=== PATIENT | female | born 1990 | race Caucasian/White ===

== ENCOUNTER → 2016-08-21 | Outpatient (CLI) | payer MEDICAID ==
[~2016-08-21] MED LIST: CIPR500T89 PO; IBUP200C PO; K-TA1TAB PO; LIDOCAINE 1% MDV 20ML VIAL As Ordered ONE; LIDOCAINE 2% MDV 20 ML VIAL As Ordered ONE; LIDOCAINE W/EPINEPHRINE 1% 20ML VIAL As Ordered ONE; MAGNESIUM PO; ORSYTAB PO; SODIUM BICARBONATE 8.4% INJ 50MEQ 50 ML VIAL As Ordered ONE; TRI IODINE PO; TYLE325T5 PO
--- NOTE | 2016-08-21 17:18 | REPKIM ---
CLINICAL HISTORY: Patient has a right chest [id number]. The referring service has requested to remove the chest [id number] because it is no longer needed. PROCEDURE PERFORMED: Chest Degtyy-F-Xytb Removal INTERVENTIONALIST: Angelito Suresh MD MEDICATIONS: Local Lidocaine EBL: less than 5 mL CONSENT: The risks, benefits and alternatives to the procedure were explained to the patient and informed written consent was obtained. PROCEDURE/FINDINGS: The patient was brought to the interventional radiology suite and was positioned supine on the table. Time out procedure was performed. Fluoroscopy of the chest showed the catheter is intact with its tip in a satisfactory course and position. The right upper chest was prepped and draped in the usual sterile fashion. Local anesthesia was administered to the overlying skin and surrounding deep tissue around the existing port. Then a skin incision was made. The port was bluntly dissected free from the surrounding soft tissues. Then the port and its associated catheter were removed in their entirety. The deep tissue was closed with interrupted 2-0 Vicryl suture. The skin incision closed with running subcutaneous 4-0 Vicryl suture and steristrips. The patient tolerated the procedure well with no immediate complications. This procedure was performed using fluoroscopy. Dr. Suresh was present. IMPRESSION: Successful chest mzshvb-y-cnvi removal as discussed above. cc: Lindy Gutierrez MD [facility]
== END | disposition home or self-care (01) ==
LOC: M IRPRO 12:41
PROVIDERS: ATTEND Internal Medicine Medical Oncology
DX: Z45.2 Encounter for adjustment and management of vascular access device (principal)

== ENCOUNTER → 2017-02-24 | Outpatient (CLI) | payer OTHER ==
[~2017-02-24] MED LIST changes: +CIPR-249 PO; -CIPR500T89 PO; +GASTROGRAFIN SOLUTION 30ML (Q9963) As Ordered ONE; -IBUP200C PO; +IBUP200C10 PO; +ISOVUE-370 76% 100ML VIAL (Q9967) As Ordered ONE; -LIDOCAINE 1% MDV 20ML VIAL As Ordered ONE; -LIDOCAINE 2% MDV 20 ML VIAL As Ordered ONE; -LIDOCAINE W/EPINEPHRINE 1% 20ML VIAL As Ordered ONE; -SODIUM BICARBONATE 8.4% INJ 50MEQ 50 ML VIAL As Ordered ONE
--- NOTE | 2017-02-24 12:00 | REP ---
CT of the abdomen and pelvis without and with IV contrast, multiphase scanning: Comparison studies are 09/07/2015 and 05/08 2015 in this patient with an FAP tumor. The patient's known large mass in the anterior pelvic wall today measures: 11.8 cm transversely by 3.4 cm AP by 9.3 cm craniocaudad. 15.8 cm transversely by 9.7 cm AP by 13.8 cm craniocaudad on 09/07/2015. 15.2 cm transversely by 10.5 cm AP by 12.6 cm craniocaudad on 05/08/2015. Additionally there is a soft tissue intraperitoneal mass is to the right of midline slightly above the level of the anterior abdominal wall mass today measuring 3.1 cm transversely by 1.5 cm AP. 4.5 cm transversely by 2.9 cm AP on 09/07/2015. 3.4 cm transversely by 2.4 cm AP on05/08/2015. The the patient has a colectomy. The visualized lung lopez are unremarkable. There is an enhancing mass posteriorly in the right lobe of the liver on the arterial phase, also present previously. On the study today this measures 2.9 cm. 3.6 cm on 05/08/2015 3.2 cm on 11/18/2014. The gallbladder, pancreas and spleen are unremarkable and unchanged. The adrenals, kidneys and abdominal aorta are unremarkable and unchanged. There is no retroperitoneal mesenteric adenopathy. The perirectal bowel loops are chronically dilated, unchanged. Remainder of the bowel loops are not dilated. There is no ascites. The bladder is unremarkable. No pelvic adenopathy or ascites. Impression: The patient's anterior abdominal wall mass has decreased in size. The patients intraperitoneal mass has decreased in size. The enhancing lesion in the right lobe of the liver has decreased in size. No ascites or adenopathy. Signed by Sterling Dumont MD 02/24/2017 11:51 A
== END ==
LOC: M RAD 09:24
PROVIDERS: ATTEND Surgery
DX: D12.6 Benign neoplasm of colon, unspecified (principal); D48.1 Neoplasm of uncertain behavior of connective and other soft tissue
CPT/HCPCS: 74178; Q9963; Q9967

== ENCOUNTER 2017-10-12 21:28 | Emergency (ER) | payer OTHER ==
[2017-10-12] MEDS: NS 1,000 ML IV ×2 (22:54→23:00)
[2017-10-12 23:00] LABS: BASO % 0.4 % (0.0-1.0); EOS # 0.1 10^3/uL (0.0-0.50); EOS % 1.4 % (0.0-3.0); HEMATOCRIT 42.4 % (36.0-47.0); HEMOGLOBIN 13.5 g/dl (12.0-15.5); IMMATURE GRANULOCYTE % 0.4 % (0-3.0); LYMPH # 1.4 10^3/uL (1.5-6.5); LYMPH % 17.3 % (24.0-44.0); MEAN CORPUSCULAR HEMOGLOBIN 27.3 pg (27.0-33.0); MEAN CORPUSCULAR HGB CONC 31.8 g/dl (32.0-36.5); MEAN CORPUSCULAR VOLUME 85.8 fl (80.0-96.0); MONO # 0.5 10^3/uL (0.0-0.8); MONO % 6.4 % (0.0-5.0); NEUTROPHILS % 74.1 % (36.0-66.0); PLATELET COUNT, AUTOMATED 355 10^3/uL (150-450); RED BLOOD COUNT 4.94 10^6/uL (4.00-5.40); RED CELL DISTRIBUTION WIDTH 12.7 % (11.5-14.5); WHITE BLOOD COUNT 8.1 10^3/uL (4.0-10.0)
[2017-10-12 23:09] LABS: ALBUMIN 3.7 GM/DL (3.2-5.2); ALBUMIN/GLOBULIN RATIO 0.86 (1.00-1.93); ALKALINE PHOSPHATASE 75 U/L (45-117); ALT/SGPT 21 U/L (12-78); ANION GAP 5 MEQ/L (8-16); AST/SGOT 17 U/L (7-37); BILIRUBIN,DIRECT < 0.1 MG/DL (0.0-0.2); BILIRUBIN,TOTAL 0.2 MG/DL (0.2-1.0); BLOOD UREA NITROGEN 11 MG/DL (7-18); CARBON DIOXIDE LEVEL 27 MEQ/L (21-32); CHLORIDE LEVEL 110 MEQ/L (98-107); CREATININE FOR GFR 0.99 MG/DL (0.55-1.30); GLOMERULAR FILTRATION RATE > 60.0 (>60); GLUCOSE, FASTING 112 MG/DL (70-100); LIPASE 1048 U/L (73-393); MAGNESIUM LEVEL 1.9 MG/DL (1.8-2.4); POTASSIUM SERUM 3.7 MEQ/L (3.5-5.1); SODIUM LEVEL 142 MEQ/L (136-145)
[2017-10-12 23:49] LABS: APPEARANCE, URINE HAZY (CLEAR); BACTERIA, URINE AUTO 3+ (NEGATIVE); BILIRUBIN, URINE AUTO NEGATIVE (NEGATIVE); BLOOD, URINE BLOOD NEGATIVE (NEGATIVE); COLOR, URINE YELLOW (YELLOW); GLUCOSE, URINE (UA) AUTO NEGATIVE (NEGATIVE); KETONE, URINE AUTO NEGATIVE (NEGATIVE); LEUKOCYTE ESTERASE, URINE AUTO 3+ (NEGATIVE); MUCUS, URINE SMALL (NEGATIVE); NITRITE, URINE AUTO POSITIVE (NEGATIVE); PROTEIN, URINE AUTO NEGATIVE (NEGATIVE); RBC, URINE AUTO 10 /HPF (0-3); SPECIFIC GRAVITY URINE AUTO 1.014 (1.002-1.035); SQUAMOUS EPITHELIAL CELL UR AU 2 /HPF (0-6); TRANSITIONAL EPITHELIAL AUTO <1 /HPF; UROBILINOGEN, URINE AUTO 0.2 mg/dL (0.0-2.0); WBC, URINE AUTO 51 /HPF (0-3); YEAST LIKE CELL URINE AUTO SMALL
[2017-10-13 00:05] LABS: AMYLASE 159 U/L (25-115)
[2017-10-13] MEDS: NITROFURANTOIN (MACROBID) 100 MG CAP PO (01:00)
== END 2017-10-13 01:18 | disposition home or self-care (01) ==
LOC: M ED 10-13 01:18
DX: N39.0 Urinary tract infection, site not specified (principal); E86.0 Dehydration; R74.8 Abnormal levels of other serum enzymes; E03.9 Hypothyroidism, unspecified; Z79.899 Other long term (current) drug therapy; Z88.0 Allergy status to penicillin; Z88.1 Allergy status to other antibiotic agents; Z88.5 Allergy status to narcotic agent
CPT/HCPCS: 82150

== ENCOUNTER → 2017-10-16 | Outpatient (REF) | payer OTHER | LOC: M LAB REF 11:34 | DX: R19.7 Diarrhea, unspecified (principal) ==

== ENCOUNTER → 2018-02-13 | Outpatient (REF) | payer OTHER ==
[2018-02-13 14:16] LABS: FERRITIN 6 NG/ML (8-252); FREE T4 0.96 NG/DL (0.76-1.46); IRON (FE) 48 UG/DL (50-170); PERCENT SATURATION 10.4 % (13.2-45.0); TOTAL IRON BINDING CAPACITY 462 UG/DL (250-450)
== END ==
LOC: M LAB REF 13:37
DX: D48.1 Neoplasm of uncertain behavior of connective and other soft tissue (principal); D70.1 Agranulocytosis secondary to cancer chemotherapy; T45.1X5A Adverse effect of antineoplastic and immunosuppressive drugs, initial encounter

== ENCOUNTER → 2019-08-17 | Outpatient (CLI) | payer OTHER ==
[~2019-08-17] MED LIST changes: +B12-1CHW PO; +CALC600T57 PO; -IBUP200C10 PO; +IBUP200C25 PO; +IRON1TAB2 PO; +IRON65TA PO; +LACRI-LUBE OU; +LEVO25TA5 PO; +MACR100C43 PO; +MULTCAP PO; +PROT1TAB2 PO; +RALO1TAB PO; +SUCR1SS PO; +SULI150T PO; +TURM500C PO; +VITA100054 PO; +VITA200016 PO
--- NOTE | 2019-08-18 06:10 | REP ---
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 Technique: Axial contrast enhanced images from the lung bases to the pubic symphysis using oral (per protocol) and 100 ml Isovue 370 intravenous contrast material with delayed images of the abdomen as well as coronal and sagittal re-formations. Comparison: 10/27/2017. Findings: Lung bases are clear. Visualized heart and pericardium normal. The liver again demonstrates a stable hypervascular area along the posterior periphery of the right hepatic lobe unchanged from prior examination and likely representing hemangioma as previously suggested. The spleen, pancreas, gallbladder, right adrenal gland and kidneys are normal. Stable 9 mm left adrenal adenoma again noted. There is evidence for large bowel resection with small bowel - distal sigmoid anastomosis. Small bowel mesenteric lymph nodes are normal in appearance and decrease in size from prior examination. The actual small bowel mesentery mass noted on prior examination is slightly decreased in size and measures approximately 1.5 cm maximal width previously measuring 1.9 cm at the same level. The lobulated desmoid tumor involving the rectus muscles is considerably decreased in size from prior examination and difficult to currently quantify. However, the left rectus muscle measures roughly 2.1 cm maximal thickness and previously measured 3.2 cm maximal thickness at the same level. The pelvis demonstrates normal bladder and age-appropriate uterus/adnexa with stable 3 cm left ovarian cyst. No pelvic fluid. No intra-abdominal mass lesion. No adenopathy. No ascites. No free air. Abdominal aorta and vasculature appears normal. Musculoskeletal structures are intact without focal abnormality. Impression: 1. Desmoid tumor involving the anterior rectus muscles is decreased in size from prior examination. 2. Mass lesion in the small bowel mesentery has decreased in size from prior examination and the small bowel mesenteric lymph nodes are now relatively normal in appearance and size. 3. Remainder of the findings as described above including hypervascular lesion in the right posterior hepatic lobe, left adrenal lesion, left ovarian cyst appear essentially unchanged. 4. No new mass lesion or metastatic disease noted. Electronically Signed by Markus Do MD 08/18/2019 06:01 A
== END ==
LOC: M RAD 16:21
PROVIDERS: ATTEND Internal Medicine Hematology & Oncology
DX: D48.3 Neoplasm of uncertain behavior of retroperitoneum (principal); Z98.0 Intestinal bypass and anastomosis status; Z90.49 Acquired absence of other specified parts of digestive tract; D35.02 Benign neoplasm of left adrenal gland
CPT/HCPCS: 74177; Q9963; Q9967

== ENCOUNTER → 2019-10-28 | Outpatient (REF) | payer OTHER ==
[~2019-10-28] MED LIST changes: -GASTROGRAFIN SOLUTION 30ML (Q9963) As Ordered ONE; -ISOVUE-370 76% 100ML VIAL (Q9967) As Ordered ONE
[2019-10-28 11:37] LABS: ALBUMIN 3.5 GM/DL (3.2-5.2); ALT/SGPT 31 U/L (12-78); BILIRUBIN,TOTAL 0.4 MG/DL (0.2-1.0); BLOOD UREA NITROGEN 8 MG/DL (7-18); CARBON DIOXIDE LEVEL 30 MEQ/L (21-32); CHLORIDE LEVEL 106 MEQ/L (98-107); CREATININE FOR GFR 0.86 MG/DL (0.55-1.30); FREE T3 2.7 PG/ML (2.2-4.0); FREE T4 1.13 NG/DL (0.76-1.46); GLOMERULAR FILTRATION RATE > 60.0 (>60); GLUCOSE, FASTING 78 MG/DL (70-100); POTASSIUM SERUM 4.3 MEQ/L (3.5-5.1); SODIUM LEVEL 142 MEQ/L (136-145); THYROXINE (T4) 12.5 UG/DL (4.5-12.0); TOTAL PROTEIN 6.8 GM/DL (6.4-8.2)
[2019-10-28 12:04] LABS: TOTAL 25(OH) VITAMIN D 26.3 NG/ML (30.0-100.0)
[2019-10-29 08:07] LABS: THYROID PEROXIDASE ANTIBODY 35.1 U/ML (<60.0)
== END ==
LOC: M LABDRAW1 10:41
PROVIDERS: ATTEND Nurse Practitioner Adult Health
DX: E03.2 Hypothyroidism due to medicaments and other exogenous substances (principal); L65.8 Other specified nonscarring hair loss; Z79.899 Other long term (current) drug therapy

== ENCOUNTER → 2019-12-21 | Outpatient (CLI) | payer OTHER | LOC: M LABSMTC 09:50 | PROVIDERS: ATTEND Nurse Practitioner Adult Health | DX: Z03.818 Encounter for observation for suspected exposure to other biological agents ruled out (principal); Z11.59 Encounter for screening for other viral diseases | CPT/HCPCS: C9803; U0003 ==

== ENCOUNTER → 2020-03-25 | Outpatient (REF) | payer OTHER ==
[~2020-03-25] MED LIST changes: +KELP150T2 PO
[2020-03-25 11:35] LABS: BASO % 0.4 % (0.0-1.0); EOS # 0.4 10^3/uL (0.0-0.5); EOS % 5.4 % (0.0-3.0); HEMATOCRIT 41.9 % (36.0-47.0); HEMOGLOBIN 13.4 g/dl (12.0-15.5); LYMPH % 40.3 % (24.0-44.0); MEAN CORPUSCULAR HEMOGLOBIN 30.2 pg (27.0-33.0); MEAN CORPUSCULAR VOLUME 94.4 fl (80.0-96.0); MONO # 0.5 10^3/uL (0.0-0.8); MONO % 6.1 % (0.0-5.0); NEUTROPHILS # 3.6 10^3/uL (1.5-8.5); NEUTROPHILS % 47.4 % (36.0-66.0); PLATELET COUNT, AUTOMATED 327 10^3/uL (150-450); RED BLOOD COUNT 4.44 10^6/uL (4.00-5.40); WHITE BLOOD COUNT 7.5 10^3/uL (4.0-10.0)
[2020-03-25 12:01] LABS: ALBUMIN 3.4 GM/DL (3.2-5.2); ALT/SGPT 28 U/L (12-78); BILIRUBIN,TOTAL 0.4 MG/DL (0.2-1.0); BLOOD UREA NITROGEN 12 MG/DL (7-18); CALCIUM LEVEL 9.3 MG/DL (8.5-10.1); CARBON DIOXIDE LEVEL 34 MEQ/L (21-32); CHLORIDE LEVEL 107 MEQ/L (98-107); CREATININE FOR GFR 0.81 MG/DL (0.55-1.30); FERRITIN 61 NG/ML (8-252); FREE T4 0.97 NG/DL (0.76-1.46); GLOMERULAR FILTRATION RATE > 60.0 (>60); GLUCOSE, FASTING 67 MG/DL (70-100); IRON (FE) 82 UG/DL (50-170); PERCENT SATURATION 22.8 % (13.2-45.0); POTASSIUM SERUM 4.6 MEQ/L (3.5-5.1); SODIUM LEVEL 142 MEQ/L (136-145); TOTAL IRON BINDING CAPACITY 360 UG/DL (250-450); TOTAL PROTEIN 6.6 GM/DL (6.4-8.2)
== END ==
LOC: M LAB REF 10:05
PROVIDERS: ATTEND Internal Medicine Hematology & Oncology
DX: Z79.899 Other long term (current) drug therapy (principal)

== ENCOUNTER → 2020-08-29 | Outpatient (CLI) | payer OTHER ==
[~2020-08-29] MED LIST changes: +GASTROGRAFIN SOLUTION 30ML (Q9963) As Ordered ONE; +ISOVUE-370 76% 100ML VIAL As Ordered ONE
--- NOTE | 2020-08-30 06:24 | REP ---
INDICATION: BEGIN NEOPLASM OF COLON DESMOID TUMOR. COMPARISON: 08/17/2019 TECHNIQUE: Axial contrast-enhanced images from the lung bases to the pubic symphysis using oral and 100 cc Isovue 370 intravenous contrast material. Delayed images of the abdomen along with coronal and sagittal reformations obtained. This CT examination was performed using the following dose reduction techniques: Automated exposure control, adjustment of mA and/or kv according to the patient's size, and the use of iterative reconstruction technique. FINDINGS: Liver, spleen, pancreas, gallbladder, bilateral adrenal glands and kidneys are normal/stable. Small left adrenal adenoma is unchanged. Subtle hypervascular area within the posterior aspect of the right hepatic lobe is vaguely apparent and essentially unchanged. Patient appears to be status post total colectomy. The enteric system is without obstruction or acute inflammatory process. No obvious mass lesion identified. A somewhat triangular area of soft tissue in the right anterior paramidline pelvis (series 201; images 82-88) remains stable. Thickened appearance along the inferior aspect of the left rectus muscle remains unchanged. Pelvis demonstrates normal bladder and age-appropriate uterus/adnexa. No ascites. No free air. No intraperitoneal or retroperitoneal adenopathy. No mesenteric adenopathy. Abdominal aorta and vasculature appear normal. Skeletal structures are intact. IMPRESSION: 1. No acute abdominopelvic pathology appreciated. 2. Stable appearance to the thickened left rectus muscle and small focus of soft tissue within the anterior right hemipelvis. <Electronically signed by Markus Do > 08/30/20 0619
== END ==
LOC: M RAD 11:25
PROVIDERS: ATTEND Internal Medicine Hematology & Oncology
DX: C18.9 Malignant neoplasm of colon, unspecified (principal)
CPT/HCPCS: 74177; Q9963; Q9967

== ENCOUNTER → 2021-08-23 | Outpatient (CLI) | payer OTHER ==
[~2021-08-23] MED LIST changes: +MULT-90 PO; +VITA1CAP25 PO
== END ==
LOC: M RAD 12:02
PROVIDERS: ATTEND Internal Medicine Medical Oncology
DX: R91.1 Solitary pulmonary nodule (principal); D48.1 Neoplasm of uncertain behavior of connective and other soft tissue; E27.8 Other specified disorders of adrenal gland
CPT/HCPCS: 71260; 74177; Q9963; Q9967

== ENCOUNTER → 2021-11-27 | Outpatient (CLI) | payer OTHER ==
[~2021-11-27] MED LIST changes: -GASTROGRAFIN SOLUTION 30ML (Q9963) As Ordered ONE
== END ==
LOC: M RAD 10:51
PROVIDERS: ATTEND Specialist
DX: R91.1 Solitary pulmonary nodule (principal); R93.2 Abnormal findings on diagnostic imaging of liver and biliary tract
CPT/HCPCS: 71260; Q9967

== ENCOUNTER → 2021-12-11 | Outpatient (CLI) | payer OTHER ==
[~2021-12-11] MED LIST changes: -ISOVUE-370 76% 100ML VIAL As Ordered ONE
== END ==
LOC: M WHC 12:56
PROVIDERS: ATTEND Internal Medicine Hematology & Oncology
DX: N64.89 Other specified disorders of breast (principal)
CPT/HCPCS: 76641; 77066; G0279

== ENCOUNTER → 2022-09-20 | Outpatient (CLI) | payer OTHER ==
[~2022-09-20] MED LIST changes: +GASTROGRAFIN SOLUTION 30ML As Ordered ONE; +ISOVUE-370 76% 100ML VIAL As Ordered ONE
== END ==
LOC: M RAD 13:46
PROVIDERS: ATTEND Nurse Practitioner
DX: D48.1 Neoplasm of uncertain behavior of connective and other soft tissue (principal); Z98.1 Arthrodesis status; E04.1 Nontoxic single thyroid nodule

== ENCOUNTER → 2022-10-01 | Outpatient (REF) | payer OTHER ==
[~2022-10-01] MED LIST changes: -GASTROGRAFIN SOLUTION 30ML As Ordered ONE; -ISOVUE-370 76% 100ML VIAL As Ordered ONE
== END ==
LOC: M LAB REF 15:57
PROVIDERS: ATTEND Otolaryngology
DX: H65.22 Chronic serous otitis media, left ear (principal)

== ENCOUNTER → 2023-10-21 | Outpatient (CLI) | payer OTHER ==
[~2023-10-21] MED LIST changes: +GASTROGRAFIN SOLUTION 30ML As Ordered ONE; +ISOVUE-370 76% 100ML VIAL As Ordered ONE
== END ==
LOC: M RAD 13:50
PROVIDERS: ATTEND Nurse Practitioner
DX: D48.113 Desmoid tumor of abdominal wall (principal); Z98.0 Intestinal bypass and anastomosis status; N83.201 Unspecified ovarian cyst, right side; R93.89 Abnormal findings on diagnostic imaging of other specified body structures; E04.1 Nontoxic single thyroid nodule
CPT/HCPCS: 70491; 71260; 74177; Q9963; Q9967

== ENCOUNTER → 2024-07-25 | Outpatient (CLI) | payer OTHER ==
[~2024-07-25] MED LIST changes: +ERYT5OIN25 OP; -GASTROGRAFIN SOLUTION 30ML As Ordered ONE; -ISOVUE-370 76% 100ML VIAL As Ordered ONE; +LEVO50TA5 PO
[2024-07-25 13:14] LABS: BASO # 0.1 10^3/uL (0.0-0.2); BASO % 0.8 % (0.0-1.0); EOS # 0.2 10^3/uL (0.0-0.5); EOS % 2.1 % (0.0-3.0); HEMATOCRIT 43.7 % (36.0-47.0); HEMOGLOBIN 14.3 g/dl (12.0-15.5); LYMPH # 2.5 10^3/uL (1.5-5.0); LYMPH % 33.2 % (24.0-44.0); MEAN CORPUSCULAR HEMOGLOBIN 30.4 pg (27.0-33.0); MEAN CORPUSCULAR HGB CONC 32.7 g/dl (32.0-36.5); MONO # 0.5 10^3/uL (0.0-0.8); MONO % 6.8 % (2.0-8.0); NEUTROPHILS # 4.3 10^3/uL (1.5-8.5); NEUTROPHILS % 56.8 % (36.0-66.0); PLATELET COUNT, AUTOMATED 357 10^3/uL (150-450); WHITE BLOOD COUNT 7.6 10^3/uL (4.0-10.0)
[2024-07-25 13:46] LABS: ALBUMIN 3.9 G/DL (3.2-5.2); ALKALINE PHOSPHATASE 52 U/L (35-104); ALT/SGPT 16 U/L (7.0-40); AST/SGOT 15 U/L (<34); BILIRUBIN,TOTAL 0.3 MG/DL (0.3-1.2); BLOOD UREA NITROGEN 17 MG/DL (9-23); CALCIUM LEVEL 9.4 MG/DL (8.5-10.1); CARBON DIOXIDE LEVEL 31 MMOL/L (20-31); CHLORIDE LEVEL 106 MMOL/L (98-107); CREATININE FOR GFR 0.85 MG/DL (0.55-1.30); GLOMERULAR FILTRATION RATE > 60.0 (>60); GLUCOSE, FASTING 104 MG/DL (60-100); POTASSIUM SERUM 4.3 MMOL/L (3.5-5.1); SODIUM LEVEL 143 MMOL/L (136-145); TOTAL PROTEIN 6.9 G/DL (5.7-8.2)
[2024-07-25 13:48] LABS: FREE T4 1.14 NG/DL (0.89-1.76)
[2024-07-25 13:49] LABS: THYROID STIMULATING HORMONE 2.532 uIU/ML (0.55-4.78)
== END ==
LOC: M LAB 12:42
PROVIDERS: ATTEND Nurse Practitioner
DX: D48.118 Desmoid tumor of other site (principal)

== ENCOUNTER → 2024-10-20 | Outpatient (CLI) | payer OTHER ==
[~2024-10-20] MED LIST changes: +ISOVUE-370 76% 100ML VIAL As Ordered ONE
== END ==
LOC: M RAD 07:35
PROVIDERS: ATTEND Nurse Practitioner Women's Health
DX: D48.19 Other specified neoplasm of uncertain behavior of connective and other soft tissue (principal); Z90.49 Acquired absence of other specified parts of digestive tract; M85.80 Other specified disorders of bone density and structure, unspecified site; E04.1 Nontoxic single thyroid nodule; D35.02 Benign neoplasm of left adrenal gland; G93.89 Other specified disorders of brain
CPT/HCPCS: 70491; 71260; 74177; Q9967

== ENCOUNTER → 2024-10-20 | Outpatient (CLI) | payer OTHER ==
[~2024-10-20] MED LIST changes: -ISOVUE-370 76% 100ML VIAL As Ordered ONE
[2024-10-20 09:45] LABS: FREE T4 1.08 NG/DL (0.89-1.76)
[2024-10-20 09:47] LABS: THYROID STIMULATING HORMONE 5.32 uIU/ML (0.55-4.78)
== END ==
LOC: M LAB 07:37
PROVIDERS: ATTEND Student in an Organized Health Care Education/Training Program
DX: E03.8 Other specified hypothyroidism (principal)